=== PATIENT | male | born 2000 | race Caucasian/White ===

== ENCOUNTER 2022-07-28 23:35 | Emergency (ER) | payer OTHER ==
[~2022-07-28] VITALS: Ht 177.8 cm; Wt 88.6 kg
[2022-07-28 23:39] VITALS: BP 160/74
[2022-07-29] MEDS ORDERED: IBUPROFEN 600MG TABLET PO ONE (00:30)
[2022-07-29] MEDS ORDERED: AMOX1TAB16 MT (00:36)
[2022-07-29] MEDS ORDERED: NAPR-681 MT (00:37)
== END 2022-07-29 01:00 | disposition home or self-care (01) ==
LOC: ER 23:35
DX: K61.0 Anal abscess (principal); J45.909 Unspecified asthma, uncomplicated
CPT/HCPCS: 99282; 99283